=== PATIENT | male | born 1985 | race Caucasian/White ===

== ENCOUNTER 2017-08-04 21:54 | Emergency (ER) | payer OTHER ==
[~2017-08-04] VITALS: Ht 185.4 cm; Wt 110.0 kg
[2017-08-04 21:55] VITALS: BP 134/78; PULSE 138; RESP 16; TEMP 98.6; O2SAT 100
--- NOTE | 2017-08-04 22:04 | PD ---
Physical Exam Date Seen by Provider: Aug 04, 2017 Time Seen by Provider: 22:01 Narrative 32-year-old male recently discharged from psychiatric facility with prescriptions for medications that he can currently cannot afford. Patient states he can't sleep, he is having diarrhea, and feels suicidal and afraid. Patient feels is withdrawing from benzos which were given to him in the psychiatric facility. Patient denies pain. Patient denies allergies to medication. Data Data Last Documented VS Vital Signs Date Time Temp Pulse Resp B/P (MAP) Pulse Ox O2 Delivery O2 Flow Rate FiO2 08/04/17 21:55 98.6 138 16 134/78 (96) 100 Room Air MDM Medical Record Reviewed: Yes Supervised Visit with JUSTINA: Yes Narrative Course Vital signs are stable. Labs ordered per psychiatric protocol. Patient awaiting med bed placement Condition: Stable Juvenal Nash Aug 04, 2017 22:04
[2017-08-04 23:00] VITALS: PULSE 92; RESP 18; O2SAT 97
[2017-08-04] MEDS ORDERED: DIAZEPAM 5 MG TAB PO ONE (23:00)
[2017-08-04] MEDS ORDERED: CLON0.1T PO (23:20)
[2017-08-04 23:53] LABS: AUTOMATED NEUTROPHIL # 6.1 TH/MM3 (1.8-7.7); BASOPHIL # 0.1 TH/MM3 (0-0.2); BASOPHIL % 0.8 % (0.0-2.0); EOSINOPHIL # 0.2 TH/MM3 (0-0.4); EOSINOPHIL % 2.1 % (0.0-4.0); HEMATOCRIT 39.8 % (39.0-51.0); HEMO FLAGS DIFF FINAL; LYMPH % 23.5 % (9.0-44.0); LYMPHOCYTE # 2.1 TH/MM3 (1.0-4.8); MEAN CELL VOLUME 91.6 FL (80.0-100.0); MEAN CORPUSCULAR HEMOGLOBIN 31.2 PG (27.0-34.0); MEAN CORPUSCULAR HGB CONC 34.1 % (32.0-36.0); MONO % 5.6 % (0.0-8.0); PLATELET COUNT 330 TH/MM3 (150-450); RED BLOOD COUNT 4.34 MIL/MM3 (4.50-5.90); RED CELL DISTRIBUTION WIDTH 13.6 % (11.6-17.2)
[2017-08-04 23:54] LABS: ALKALINE PHOSPHATASE 72 U/L (45-117); TOTAL BILIRUBIN ADULT 0.2 MG/DL (0.2-1.0)
[2017-08-04 23:58] LABS: ALT (GPT) 26 U/L (12-78); ANION GAP 7 MEQ/L (5-15); AST (GOT) 13 U/L (15-37); BICARBONATE 28.3 MEQ/L (21.0-32.0); BLOOD UREA NITROGEN 20 MG/DL (7-18); CHLORIDE 103 MEQ/L (98-107); GLOMERULAR FILTRATION RATE 74 ML/MIN (>89); SODIUM (NA) 138 MEQ/L (136-145)
[2017-08-04 23:59] LABS: ACETAMINOPHEN LESS THAN 2.0 MCG/ML (10.0-30.0); ALCOHOL LESS THAN 3 MG/DL (0-5)
--- NOTE | 2017-08-05 00:12 | PD ---
HPI Chief Complaint: Psychiatric Symptoms Time Seen by Provider: 22:57 Travel History International Travel<30 days: No Contact w/Intl Traveler<30days: No Traveled to known affect area: No History of Present Illness HPI Patient is a 32-year-old male presenting to emergency for voluntarily for psychiatric evaluation. Patient states he was just discharged from the hospital in [place], he reports that he is going through withdrawal from Xanax. He reports that he does have a drug problem but he has an underlying psychiatric disorder as well. He reports feeling suicidal, depressed and anxious. He did not report any current plan. He reports a history of previous suicide attempt. He denies any physical complaints at this time. He has no chest pain, palpitations, shortness of breath, diaphoresis. Patient has with him a list of medications that he had prescribed upon discharge however he could not afford them. He reports buying Xanax off the street today. He reports taking 2 mg tablet this afternoon. PFSH Past Medical History Bipolar Disorder: Yes Anxiety: Yes (PANIC ATTACKS) Depression: Yes Diminished Hearing: No Psychiatric: Yes (PTSD) Immunizations Current: Yes Past Surgical History Oral Surgery: Yes (WISDOM TEETH REMOVED) Social History Alcohol Use: Yes (OCC) Tobacco Use: Yes (1 CAN DIP Q 3-4 DAYS) Substance Use: Yes (XANEX) Allergies-Medications (Allergen,Severity, Reaction): Coded Allergies: No Known Allergies (Unverified , 08/04/17) Reported Meds & Prescriptions Reported Meds & Active Scripts Active Reported Clonidine (Clonidine HCl) 0.1 Mg Tab 0.1 Mg PO DAILY Review of Systems Except as stated in HPI: all other systems reviewed are Neg Psychiatric: Positive: Anxiety, Depression, Suicidal Ideations, Substance Abuse Physical Exam Narrative GENERAL: Well-developed, well-nourished, alert male. Resting comfortably in no acute distress. SKIN: Warm and dry. HEAD: Atraumatic. Normocephalic. EYES: Pupils equal and round. No scleral icterus. No injection or drainage. ENT: No nasal bleeding or discharge. Mucous membranes pink and moist. NECK: Trachea midline. No JVD. CARDIOVASCULAR: Regular rate and rhythm. RESPIRATORY: No accessory muscle use. Clear to auscultation. Breath sounds equal bilaterally. GASTROINTESTINAL: Abdomen soft, non-tender, nondistended. Hepatic and splenic margins not palpable. MUSCULOSKELETAL: Extremities without clubbing, cyanosis, or edema. No obvious deformities. NEUROLOGICAL: Awake and alert. No obvious cranial nerve deficits. Motor grossly within normal limits. Five out of 5 muscle strength in the arms and legs. Normal speech. PSYCHIATRIC: Depressed mood and flat affect; insight and judgment normal. Data Data Last Documented VS Vital Signs Date Time Temp Pulse Resp B/P (MAP) Pulse Ox O2 Delivery O2 Flow Rate FiO2 08/04/17 21:55 98.6 138 16 134/78 (96) 100 Room Air Orders Orders Complete Blood Count With Diff (08/04/17 22:05) Comprehensive Metabolic Panel (08/04/17 22:05) Psych Screen (08/04/17 22:05) Drug Screen, Random Urine (08/04/17 22:05) Alcohol (Ethanol) (08/04/17 22:05) Salicylates (Aspirin) (08/04/17 22:05) Tylenol (Acetaminophen) (08/04/17 22:05) Diazepam (Valium) (08/04/17 23:00) Labs Laboratory Tests Test 08/04/17 23:15 White Blood Count 9.0 TH/MM3 Red Blood Count 4.34 MIL/MM3 Hemoglobin 13.6 GM/DL Hematocrit 39.8 % Mean Corpuscular Volume 91.6 FL Mean Corpuscular Hemoglobin 31.2 PG Mean Corpuscular Hemoglobin Concent 34.1 % Red Cell Distribution Width 13.6 % Platelet Count 330 TH/MM3 Mean Platelet Volume 7.2 FL Neutrophils (%) (Auto) 68.0 % Lymphocytes (%) (Auto) 23.5 % Monocytes (%) (Auto) 5.6 % Eosinophils (%) (Auto) 2.1 % Basophils (%) (Auto) 0.8 % Neutrophils # (Auto) 6.1 TH/MM3 Lymphocytes # (Auto) 2.1 TH/MM3 Monocytes # (Auto) 0.5 TH/MM3 Eosinophils # (Auto) 0.2 TH/MM3 Basophils # (Auto) 0.1 TH/MM3 CBC Comment DIFF FINAL Differential Comment Blood Urea Nitrogen 20 MG/DL Creatinine 1.15 MG/DL Random Glucose 108 MG/DL Total Protein 7.5 GM/DL Albumin 3.7 GM/DL Calcium Level 8.9 MG/DL Alkaline Phosphatase 72 U/L Aspartate Amino Transf (AST/SGOT) 13 U/L Alanine Aminotransferase (ALT/SGPT) 26 U/L Total Bilirubin 0.2 MG/DL Sodium Level 138 MEQ/L Potassium Level 4.0 MEQ/L Chloride Level 103 MEQ/L Carbon Dioxide Level 28.3 MEQ/L Anion Gap 7 MEQ/L Estimat Glomerular Filtration Rate 74 ML/MIN Salicylates Level LESS THAN 1.7 MG/DL Acetaminophen Level LESS THAN 2.0 MCG/ML Ethyl Alcohol Level LESS THAN 3 MG/DL MDM Medical Decision Making Medical Screen Exam Complete: Yes Emergency Medical Condition: Yes Interpretation(s) Vital Signs Date Time Temp Pulse Resp B/P (MAP) Pulse Ox O2 Delivery O2 Flow Rate FiO2 08/04/17 21:55 98.6 138 16 134/78 (96) 100 Room Air Differential Diagnosis Mood disorder versus substance abuse versus suicidal ideations versus psychosis versus metabolic abnormality versus other Narrative Course Patient presented voluntarily for psychiatric evaluation due to suicidal ideations, depression, anxiety, benzodiazepine abuse. Patient's vital signs are charted with a heart rate of 138 in triage, when patient was placed in room his heart rate was 92. Patient appears well although depressed and slightly anxious. Patient's labs were ordered while in triage. Patient was given Valium 5 mg by mouth 1 for anxiety. Mental health screening discussed with the patient. Psychiatric screen ordered. Labs reviewed, no acute abnormalities identified. Urine drug screen is still pending however patient is medically cleared for psychiatric evaluation at this time. Diagnosis Primary Impression: Medical clearance for psychiatric admission Additional Impressions: Suicidal ideations Benzodiazepine abuse Condition: Stable Lara Palma Aug 05, 2017 00:12
[2017-08-05] MEDS ORDERED: HALO5TAB PO (06:56)
[2017-08-05] MEDS ORDERED: CELE10TA PO (06:56)
[2017-08-05] MEDS ORDERED: ABIL2TAB2 PO (06:56)
[2017-08-05] MEDS ORDERED: cogentin PO (06:56)
[2017-08-05 07:18] VITALS: BP 143/67; PULSE 86; RESP 16; O2SAT 95
[2017-08-05 11:45] VITALS: BP 148/77; PULSE 66; RESP 18; O2SAT 99
[2017-08-05] MEDS ORDERED: DIAZEPAM 2 MG TAB PO ONE (14:00)
[2017-08-05] MEDS ORDERED: PROZ20CA11 PO (14:58)
[2017-08-05] MEDS ORDERED: LAMO100 PO (14:59)
--- NOTE | 2017-08-05 15:15 | PD ---
Physical Exam Date Seen by Provider: Aug 05, 2017 Time Seen by Provider: 15:14 Narrative Patient was initially Andre acted by me given the fact that he wanted to leave and the previous provider's impression was that he was saying that he was suicidal and has had previous suicide attempts. I wanted him to be seen by the psychiatrist so that they could decide based on the capacity whether the patient is safe to be discharged or not. I was told that the psychiatrist saw the patient and is lifting the Andre act. He is comfortable discharging him home. He is giving him some prescriptions to go home with. I'm comfortable with this plan. Patient will be discharged. Data Data Last Documented VS Orders Orders Complete Blood Count With Diff (08/04/17 22:05) Comprehensive Metabolic Panel (08/04/17 22:05) Psych Screen (08/04/17 22:05) Drug Screen, Random Urine (08/04/17 22:05) Alcohol (Ethanol) (08/04/17 22:05) Salicylates (Aspirin) (08/04/17 22:05) Tylenol (Acetaminophen) (08/04/17 22:05) Diazepam (Valium) (08/04/17 23:00) Diet Regular Basic (08/05/17 Breakfast) Diazepam (Valium) (08/05/17 14:00) Ed Discharge Order (08/05/17 15:12) Labs Laboratory Tests Test 08/04/17 23:15 08/05/17 03:40 White Blood Count 9.0 TH/MM3 Red Blood Count 4.34 MIL/MM3 Hemoglobin 13.6 GM/DL Hematocrit 39.8 % Mean Corpuscular Volume 91.6 FL Mean Corpuscular Hemoglobin 31.2 PG Mean Corpuscular Hemoglobin Concent 34.1 % Red Cell Distribution Width 13.6 % Platelet Count 330 TH/MM3 Mean Platelet Volume 7.2 FL Neutrophils (%) (Auto) 68.0 % Lymphocytes (%) (Auto) 23.5 % Monocytes (%) (Auto) 5.6 % Eosinophils (%) (Auto) 2.1 % Basophils (%) (Auto) 0.8 % Neutrophils # (Auto) 6.1 TH/MM3 Lymphocytes # (Auto) 2.1 TH/MM3 Monocytes # (Auto) 0.5 TH/MM3 Eosinophils # (Auto) 0.2 TH/MM3 Basophils # (Auto) 0.1 TH/MM3 CBC Comment DIFF FINAL Differential Comment Blood Urea Nitrogen 20 MG/DL Creatinine 1.15 MG/DL Random Glucose 108 MG/DL Total Protein 7.5 GM/DL Albumin 3.7 GM/DL Calcium Level 8.9 MG/DL Alkaline Phosphatase 72 U/L Aspartate Amino Transf (AST/SGOT) 13 U/L Alanine Aminotransferase (ALT/SGPT) 26 U/L Total Bilirubin 0.2 MG/DL Sodium Level 138 MEQ/L Potassium Level 4.0 MEQ/L Chloride Level 103 MEQ/L Carbon Dioxide Level 28.3 MEQ/L Anion Gap 7 MEQ/L Estimat Glomerular Filtration Rate 74 ML/MIN Salicylates Level LESS THAN 1.7 MG/DL Acetaminophen Level LESS THAN 2.0 MCG/ML Ethyl Alcohol Level LESS THAN 3 MG/DL Urine Opiates Screen NEG Urine Barbiturates Screen NEG Urine Amphetamines Screen NEG Urine Benzodiazepines Screen POS Urine Cocaine Screen NEG Urine Cannabinoids Screen POS MDM Supervised Visit with JUSTINA: No Diagnosis Primary Impression: Medical clearance for psychiatric admission Additional Impressions: Suicidal ideations Benzodiazepine abuse Scripts Lamotrigine (Lamictal) 100 Mg Tab 50 MG PO BID for Control Seizures, #60 TAB 0 Refills Prov: Chele Doyle MD 08/05/17 Fluoxetine (Prozac) 20 Mg Cap 20 MG PO BID, #60 CAP 0 Refills Prov: Chele Doyle MD 08/05/17 Disposition: 01 DISCHARGE HOME Condition: Stable Richard Valdovinos MD Aug 05, 2017 15:15
--- NOTE | 2017-08-05 16:35 | PD ---
History of Present Illness Chief Complaint: Psychiatric Symptoms Time Seen by Provider: 14:30 Travel History International Travel<30 Days: No Contact w/Intl Traveler<30days: No Known affected area: No Legal Status Legal Status: Andre Act History of Present Illness: 32-year-old male that presented under a Andre act but is truly seeking refill of previous medications, Prozac and Lamictal. Patient denies any suicidal or homicidal ideation, plan or intent. He was recently released from a treatment facility and resides in a recovery oriented facility. He bought Xanax off the street because he is been weaned off the medicine. He is asking for refills of Prozac and Lamictal. He has no psychotic symptoms and his cognition is intact. He is verbally rhianna for safety and he is competent to do so. This physician informed him that I am willing to refill his Prozac and Lamictal prescriptions. PFSH Past Medical History Bipolar Disorder: Yes Anxiety: Yes (PANIC ATTACKS) Depression: Yes Diminished Hearing: No Psychiatric: Yes (PTSD) Immunizations Current: Yes Past Surgical History Oral Surgery: Yes (WISDOM TEETH REMOVED) Psychiatric History Psychiatric History Hx Psychiatric Treatment: HX: PTSD, ANXIETY AND DEPRESSION IN [place] History of Inpatient Treatment: Yes Guns or firearms in home: No Social History Hx Alcohol Use: Yes (OCC) Hx Tobacco Use: Yes (1 CAN DIP Q 3-4 DAYS) Hx Substance Use: Yes (XANAX) Substance Use Type: Benzos (Valium,Xanax) Hx of Substance Use Treatment: Yes Allergies-Medications (Allergen,Severity, Reaction): Coded Allergies: No Known Allergies (Unverified , 08/04/17) Reported Meds & Prescriptions Reported Meds & Active Scripts Active Lamictal (Lamotrigine) 100 Mg Tab 50 Mg PO BID Prozac (Fluoxetine HCl) 20 Mg Cap 20 Mg PO BID Reported [cogentin ] 0.5 Mg PO BID Haloperidol 5 Mg Tab 5 Mg PO BID Celexa (Citalopram Hydrobromide) 10 Mg Tab 10 Mg PO DAILY Abilify (Aripiprazole) 2 Mg Tab 5 Mg PO DAILY Clonidine (Clonidine HCl) 0.1 Mg Tab 0.1 Mg PO DAILY Review of Systems Except as stated in HPI: all other systems reviewed are Neg Mental Status Examination Appearance: Appropriate Consciousness: Alert Orientation: x4 Motor Activity: Normal gait Speech: Unremarkable Language: Adequate Fund of Knowledge: Adequate Attention and Concentration: Adequate Memory: Unremarkable Mood: Appropriate Affect: Appropriate Thought Process & Associations: Intact Thought Content: Appropriate Hallucination Type: None Delusion Type: None Suicidal Ideation: No Suicidal Plan: No Suicidal Intention: No Homicidal Ideation: No Homicidal Plan: No Homicidal Intention: No Insight: Adequate Judgment: Adequate MDM Medical Decision Making Medical Record Reviewed: Yes Assessment/Plan Patient interviewed at bedside, medical record reviewed and case discussed with nurse Dickson. Patient is calm, pleasant and cooperative. Cognition intact. No psychotic symptoms. Verbally rhianna for safety and competent to do so. Patient may seek follow up treatment on an outpatient basis. Prescriptions for Prozac and Lamictal written. Orders Orders Complete Blood Count With Diff (08/04/17 22:05) Comprehensive Metabolic Panel (08/04/17 22:05) Psych Screen (08/04/17 22:05) Drug Screen, Random Urine (08/04/17 22:05) Alcohol (Ethanol) (08/04/17 22:05) Salicylates (Aspirin) (08/04/17 22:05) Tylenol (Acetaminophen) (08/04/17 22:05) Diazepam (Valium) (08/04/17 23:00) Diet Regular Basic (08/05/17 Breakfast) Diazepam (Valium) (08/05/17 14:00) Ed Discharge Order (08/05/17 15:12) Results Vital Signs Date Time Temp Pulse Resp B/P (MAP) Pulse Ox O2 Delivery O2 Flow Rate FiO2 08/05/17 15:29 08/05/17 11:45 66 18 148/77 (100) 99 Room Air 08/05/17 07:18 86 16 143/67 (92) 95 Room Air 08/04/17 23:00 92 18 97 Room Air 08/04/17 21:55 98.6 138 16 134/78 (96) 100 Room Air Laboratory Tests Test 08/04/17 23:15 08/05/17 03:40 White Blood Count 9.0 Red Blood Count 4.34 Hemoglobin 13.6 Hematocrit 39.8 Mean Corpuscular Volume 91.6 Mean Corpuscular Hemoglobin 31.2 Mean Corpuscular Hemoglobin Concent 34.1 Red Cell Distribution Width 13.6 Platelet Count 330 Mean Platelet Volume 7.2 Neutrophils (%) (Auto) 68.0 Lymphocytes (%) (Auto) 23.5 Monocytes (%) (Auto) 5.6 Eosinophils (%) (Auto) 2.1 Basophils (%) (Auto) 0.8 Neutrophils # (Auto) 6.1 Lymphocytes # (Auto) 2.1 Monocytes # (Auto) 0.5 Eosinophils # (Auto) 0.2 Basophils # (Auto) 0.1 CBC Comment DIFF FINAL Differential Comment Blood Urea Nitrogen 20 Creatinine 1.15 Random Glucose 108 Total Protein 7.5 Albumin 3.7 Calcium Level 8.9 Alkaline Phosphatase 72 Aspartate Amino Transf (AST/SGOT) 13 Alanine Aminotransferase (ALT/SGPT) 26 Total Bilirubin 0.2 Sodium Level 138 Potassium Level 4.0 Chloride Level 103 Carbon Dioxide Level 28.3 Anion Gap 7 Estimat Glomerular Filtration Rate 74 Salicylates Level LESS THAN 1.7 Acetaminophen Level LESS THAN 2.0 Ethyl Alcohol Level LESS THAN 3 Urine Opiates Screen NEG Urine Barbiturates Screen NEG Urine Amphetamines Screen NEG Urine Benzodiazepines Screen POS Urine Cocaine Screen NEG Urine Cannabinoids Screen POS Diagnosis Primary Impression: Adjustment disorder with depressed mood Departure Forms: Tests/Procedures Patient Instructions: General Instructions Prescriptions Lamotrigine (Lamictal) 100 Mg Tab 50 MG PO BID for Control Seizures, #60 TAB 0 Refills Prov: Chele Doyle MD 08/05/17 Fluoxetine (Prozac) 20 Mg Cap 20 MG PO BID, #60 CAP 0 Refills Prov: Chele Doyle MD 08/05/17 Disposition: 01 DISCHARGE HOME Condition: Stable Chele Doyle MD Aug 05, 2017 16:35
[2017-08-08] MEDS ORDERED: BENZ0.5T PO (11:52)
== END 2017-08-05 15:30 | disposition home or self-care (01) ==
LOC: NEPD 21:54
DX: F43.21 Adjustment disorder with depressed mood (principal); F13.10 Sedative, hypnotic or anxiolytic abuse, uncomplicated; F31.9 Bipolar disorder, unspecified; F43.10 Post-traumatic stress disorder, unspecified; F17.220 Nicotine dependence, chewing tobacco, uncomplicated; Z79.899 Other long term (current) drug therapy
CPT/HCPCS: 80053; 80307; 85025; 99284